=== PATIENT | female | born 1980 | race Caucasian/White ===

== ENCOUNTER → 2016-06-05 | Outpatient (CLI) | payer OTHER ==
[~2016-06-05] MED LIST: /ADVA50050; ACET50TA PO; AMBI10TA; AMOX500C; ATIV0.5T; BUSP10TA2; CELE40TA; CLAR5CHW; DIFFERIN; IBUP-1114 PO; PRENTAB9 PO; PROV90AE; PROZ20CA; SLOWTAB
--- NOTE | 2016-06-06 10:25 | REP ---
Pelvic sonography: History: Heavy bleeding . Findings: Transabdominal and transvaginal scanning are included. Uterine dimensions are normal, at 9.0 x 4.3 x 6.3 cm. Endometrial echo is 0.3 cm thick and centrally placed. No focal uterine mass is seen. No free fluid is noted. Neither ovary could be visualized either transabdominally or trans-vaginally. Impression: Neither ovary could be visualized. No adnexal mass, cyst, or free fluid. Normal uterus. Signed by Vishal Tomlin MD 06/06/2016 11:04 A
== END ==
LOC: M RAD 16:32
PROVIDERS: ATTEND Advanced Practice Midwife
DX: O72.2 Delayed and secondary postpartum hemorrhage (principal)

== ENCOUNTER → 2016-06-20 | Outpatient (REF) | payer OTHER | LOC: M SFHCLERA 10:54 | PROVIDERS: ATTEND Physician Assistant | DX: J02.9 Acute pharyngitis, unspecified (principal) ==

== ENCOUNTER → 2016-07-10 | Outpatient (REF) | payer OTHER | LOC: M LAB REF 13:10 | PROVIDERS: ATTEND Advanced Practice Midwife | DX: Z12.4 Encounter for screening for malignant neoplasm of cervix (principal) ==

== ENCOUNTER → 2017-08-12 | Outpatient (CLI) | payer OTHER ==
[2017-08-12 18:22] LABS: BASO % 0.4 % (0.0-1.0); EOS # 0.1 10^3/uL (0.0-0.50); EOS % 0.8 % (0.0-3.0); HEMATOCRIT 36.9 % (36.0-47.0); HEMOGLOBIN 12.2 g/dl (12.0-15.5); IMMATURE GRANULOCYTE % 0.3 % (0-3.0); LYMPH # 2.8 10^3/uL (1.5-4.5); LYMPH % 27.3 % (24.0-44.0); MEAN CORPUSCULAR HEMOGLOBIN 28.9 pg (27.0-33.0); MEAN CORPUSCULAR HGB CONC 33.1 g/dl (32.0-36.5); MEAN CORPUSCULAR VOLUME 87.4 fl (80.0-96.0); MONO # 0.5 10^3/uL (0.0-0.8); MONO % 4.5 % (0.0-5.0); NEUTROPHILS # 6.8 10^3/uL (1.8-7.7); NEUTROPHILS % 66.7 % (36.0-66.0); PLATELET COUNT, AUTOMATED 364 10^3/uL (150-450); RED BLOOD COUNT 4.22 10^6/uL (4.00-5.40); RED CELL DISTRIBUTION WIDTH 12.5 % (11.5-14.5); WHITE BLOOD COUNT 10.3 10^3/uL (4.0-10.0)
[2017-08-12 18:47] LABS: FREE T4 0.81 NG/DL (0.76-1.46)
[2017-08-12 20:26] LABS: CHLAMYDIA DNA AMPLIFICATION NEGATIVE (NEGATIVE); GC DNA AMPLIFICATION NEGATIVE (NEGATIVE)
[2017-08-13 10:41] LABS: RUBELLA IgG QUALITATIVE IMMUNE (IMMUNE)
[2017-08-13 11:10] LABS: HEPATITIS C VIRUS ABY INDEX < 0.0 INDEX (<0.8)
[2017-08-13 11:11] LABS: HIV 1&2 SCREEN CENTAUR NEGATIVE (NEGATIVE)
[2017-08-13 11:34] LABS: HBsAg Prenatal NEGATIVE (NEGATIVE)
== END ==
LOC: M SMT 14:21
DX: Z3A.10 10 weeks gestation of pregnancy (principal)
CPT/HCPCS: 84443

== ENCOUNTER → 2017-09-07 | Outpatient (REF) | payer OTHER | LOC: M LAB REF 16:57 | DX: Z34.82 Encounter for supervision of other normal pregnancy, second trimester (principal) ==

== ENCOUNTER → 2017-10-14 | Outpatient (CLI) | payer OTHER | LOC: M SMT 09:58 | DX: Z36.89 Encounter for other specified antenatal screening (principal); Z3A.19 19 weeks gestation of pregnancy | CPT/HCPCS: 76811 ==

== ENCOUNTER → 2017-11-15 | Outpatient (CLI) | payer OTHER | LOC: M RAD 14:38 | DX: Z36.89 Encounter for other specified antenatal screening (principal); Z3A.24 24 weeks gestation of pregnancy | CPT/HCPCS: 76816 ==

== ENCOUNTER → 2017-12-21 | Outpatient (CLI) | payer OTHER | LOC: M RAD 11:28 | DX: Z34.82 Encounter for supervision of other normal pregnancy, second trimester (principal); Z3A.30 30 weeks gestation of pregnancy | CPT/HCPCS: 76816 ==

== ENCOUNTER 2018-01-10 06:54 | Outpatient (CLI) | payer OTHER ==
[2018-01-10] MEDS: IRON SUCROSE 500 MG in NS 250 ML IV (08:04)
== END 2018-01-10 11:45 | disposition home or self-care (01) ==
LOC: M INFU 06:54
DX: D64.9 Anemia, unspecified (principal); Z3A.32 32 weeks gestation of pregnancy; J45.909 Unspecified asthma, uncomplicated; F32.9 Major depressive disorder, single episode, unspecified; Z98.84 Bariatric surgery status; Z79.899 Other long term (current) drug therapy; Z88.5 Allergy status to narcotic agent
CPT/HCPCS: J1756

== ENCOUNTER → 2018-02-03 | Outpatient (CLI) | payer OTHER | LOC: M RAD 17:37 | DX: O99.613 Diseases of the digestive system complicating pregnancy, third trimester (principal); Z3A.35 35 weeks gestation of pregnancy; K91.2 Postsurgical malabsorption, not elsewhere classified | CPT/HCPCS: 76816 ==

== ENCOUNTER → 2018-02-10 | Outpatient (CLI) | payer OTHER ==
[2018-02-11 14:40] LABS: IMMEDIATE SPIN CROSSMATCH 1 2
== END ==
LOC: M LAB 16:59
DX: Z00.00 Encounter for general adult medical examination without abnormal findings (principal)
CPT/HCPCS: 36415

== ENCOUNTER → 2018-02-10 | Outpatient (REF) | payer OTHER | LOC: M LAB REF 13:17 | DX: O09.523 Supervision of elderly multigravida, third trimester (principal) | CPT/HCPCS: 87186 ==

== ENCOUNTER 2018-02-11 12:10 | Outpatient (CLI) | payer OTHER ==
[2018-02-11] MEDS: ACETAMINOPHEN 500 MG TAB PO (12:31)
[2018-02-11] MEDS: diphenhydrAMINE 25 MG CAP PO (12:32)
== END 2018-02-11 17:00 | disposition home or self-care (01) ==
LOC: M INFU 12:10
DX: O99.013 Anemia complicating pregnancy, third trimester (principal); Z3A.32 32 weeks gestation of pregnancy; Z88.5 Allergy status to narcotic agent
CPT/HCPCS: 36430

== ENCOUNTER 2018-02-23 00:06 | Outpatient (CLI) | payer OTHER | END 2018-02-23 01:25 | disposition home or self-care (01) | LOC: M LDO 00:06 | DX: O47.1 False labor at or after 37 completed weeks of gestation (principal); Z3A.38 38 weeks gestation of pregnancy | CPT/HCPCS: 59025 ==

== ENCOUNTER 2018-02-23 03:43 | Inpatient (IN) | payer OTHER ==
[2018-02-23] MEDS ORDERED: PENICILLIN G POTASSIUM IV 5 MU in D5W MINI-BAG PLUS 100 ML IV (04:31)
[2018-02-23] MEDS ORDERED: OXYTOCIN 30 UNITS IN 0.9% NaCl 500ML IV BAG (J2590) As Ordered (04:32)
[2018-02-23] MEDS: AMPICILLIN SOD 2 GM in APPROPRIATE DILUENT 20 ML IV (04:36)
[2018-02-23] MEDS ORDERED: AMPICILLIN 2 GM VIAL As Ordered (04:38)
[2018-02-23 05:37] LABS: CORD GAS ABE A -8.2; CORD GAS HCO3 A 20.7 MEQ/L; CORD GAS HCO3 V 18.6 MEQ/L; CORD GAS O2 SAT A 32.3 %; CORD GAS O2 SAT V 32.5 %; CORD GAS PCO2 V 46.4 mmHg; CORD GAS PH A 7.171 UNITS; CORD GAS PH V 7.221 UNITS; CORD GAS PO2 A 18.8 mmHg; CORD GAS PO2 V 17.7 mmHg; CORD GAS SBC A 16.6 MEQ/L; CORD GAS TCO2 A 22.5 MEQ/L
[2018-02-23] MEDS: OXYTOCIN DRIP 30 UNITS in APPROPRIATE DILUENT 1 EA IV (06:03)
[2018-02-23] MEDS ORDERED: ACETAMINOPHEN 500 MG TAB As Ordered (06:05)
[2018-02-23] MEDS ORDERED: METHYLERGONOVINE MALEATE 0.2 MG TAB PO (06:15)
[2018-02-23] MEDS ORDERED: MEASLES,MUMPS,RUBELLA VACCINE INJ (MMR-II) (90707) SC (06:15)
[2018-02-23] MEDS ORDERED: MOM 30ML SUSPENSION UDC PO (06:15)
[2018-02-23] MEDS ORDERED: ANUSOL HC CREAM 30GM TOP (06:15)
[2018-02-23] MEDS ORDERED: DIBUCAINE 1% OINTMENT 30GM TOP (06:15)
[2018-02-23] MEDS ORDERED: RHOGAM 300 MCG (1500 IU) INJ (J2790) IM (06:15)
[2018-02-23] MEDS: PRENATAL VITAMINS CHEWABLE TABLET PO (09:39)
[2018-02-23] MEDS: ACETAMINOPHEN 500 MG TAB PO ×2 (14:51→19:56)
[2018-02-23] MEDS: DOCUSATE SODIUM 100 MG CAP PO (20:05)
[2018-02-24] MEDS: ONDANSETRON 4 MG ORAL DISINTEGRATING TAB (Q0162 PER 1MG) SL (06:32)
[2018-02-24] MEDS: PRENATAL VITAMINS CHEWABLE TABLET PO (08:14)
[2018-02-24] MEDS: ACETAMINOPHEN 500 MG TAB PO (16:08)
[2018-02-25] MEDS: ACETAMINOPHEN 500 MG TAB PO ×2 (04:16→10:29)
[2018-02-25] MEDS: PRENATAL VITAMINS CHEWABLE TABLET PO (08:14)
== END 2018-02-25 10:42 | disposition home or self-care (01) | DRG 560 ==
LOC: M LDO 03:43 → M LDI 04:24 → M OBS 07:28
PROVIDERS: Obstetrics & Gynecology
PROC: 10E0XZZ Delivery of Products of Conception, External Approach (ICD-10-PCS; principal; 2018-02-23)
DX: O80 Encounter for full-term uncomplicated delivery (principal); Z37.0 Single live birth; Z3A.38 38 weeks gestation of pregnancy

== ENCOUNTER → 2018-05-05 | Outpatient (REF) | payer OTHER ==
[~2018-05-05] MED LIST changes: -ACET50TA PO; +CELE40TA PO; +MAPA500T17 PO; +PROTPAK PO
== END ==
LOC: M SFHCLERA 12:32
PROVIDERS: ATTEND Nurse Practitioner Family
DX: R53.81 Other malaise (principal)

== ENCOUNTER 2018-05-27 08:14 | Day surgery (SDC) | payer OTHER ==
[~2018-05-27] VITALS: Ht 162.6 cm; Wt 90.3 kg
[~2018-05-27 08:14] MED LIST changes: +LR 1,000 ML IV ONE; -MAPA500T17 PO; +MAPA500T2 PO
[2018-05-27 08:43] LABS: HEMATOCRIT 38.7 % (36.0-47.0); MEAN CORPUSCULAR HEMOGLOBIN 30.4 pg (27.0-33.0); MEAN CORPUSCULAR HGB CONC 33.6 g/dl (32.0-36.5); MEAN CORPUSCULAR VOLUME 90.6 fl (80.0-96.0); PLATELET COUNT, AUTOMATED 286 10^3/uL (150-450); RED BLOOD COUNT 4.27 10^6/uL (4.00-5.40); WHITE BLOOD COUNT 6.7 10^3/uL (4.0-10.0)
[2018-05-27] MEDS ORDERED: PERCOCET PO (09:05)
[2018-05-27 09:15] LABS: HCG, SERUM QUALITATIVE NEGATIVE (NEGATIVE)
[2018-05-27] MEDS ORDERED: IBUP1TAB7 PO (09:21)
[2018-05-27] MEDS ORDERED: BUPIVACAINE HCL 0.25% 30 ML VIAL As Ordered ONE (10:04)
[2018-05-27] MEDS ORDERED: MIDAZOLAM INJ 2 MG/2 ML VIAL (J2250) As Ordered ONE (10:39)
[2018-05-27] MEDS ORDERED: ONDANSETRON 4MG/2ML VIAL (J2405) As Ordered ONE (10:39)
[2018-05-27] MEDS ORDERED: fentaNYL 250 MCG/5 ML INJECTION (J3010) As Ordered ONE (10:39)
[2018-05-27] MEDS ORDERED: HYDROmorphone HCL 2 MG/ML 1ML VIAL (J1170) As Ordered ONE (10:39)
[2018-05-27] MEDS ORDERED: PROPOFOL 200 MG/20 ML VIAL As Ordered ONE (10:39)
[2018-05-27] MEDS ORDERED: dexameTHASONE 4 MG/ML 1ML VIAL (J1100) As Ordered ONE (10:39)
[2018-05-27] MEDS ORDERED: LIDOCAINE 2% INJ 100 MG/5 ML SDV (FOR ANES.) As Ordered ONE (10:39)
[2018-05-27] MEDS ORDERED: ROCURONIUM BROMIDE 50 MG/5 ML VIAL As Ordered ONE ×2 (10:39→10:58)
[2018-05-27] MEDS ORDERED: SUGAMMADEX SODIUM 500 MG/5 ML VIAL (BRIDION) As Ordered ONE (10:40)
[2018-05-27] MEDS ORDERED: ePHEDrine SULFATE 25 MG/5 ML(5MG/ML) SYRINGE As Ordered ONE (10:49)
[2018-05-27] MEDS ORDERED: fentaNYL 100 MCG/2 ML INJECTION (J3010) IV PRN (11:45)
[2018-05-27] MEDS ORDERED: ONDANSETRON 4MG/2ML VIAL (J2405) IV PRN (11:45)
[2018-05-27] MEDS ORDERED: LR 1,000 ML IV SCH (11:45)
[2018-05-27] MEDS ORDERED: PERCOCET 5MG/325MG TAB PO PRN ×2 (11:45→12:00)
[2018-05-27] MEDS ORDERED: METOCLOPRAMIDE INJ 10MG/2ML VIAL (J2765) IV PRN (11:45)
[2018-05-27] MEDS ORDERED: KETOROLAC 30 MG/ML VIAL (J1885) As Ordered ONE (11:50)
--- NOTE | 2018-05-27 11:56 | RO ---
DATE OF PROCEDURE: 05/27/2018 PREOPERATIVE DIAGNOSIS: Satisfied parity with undesired fertility. POSTOPERATIVE DIAGNOSIS: Satisfied parity with undesired fertility. PROCEDURE PERFORMED: Laparoscopic bilateral salpingectomy. SURGEON: Thu Macedo MD QUALITY CONTROL REPRESENTATIVE: FLORIN Purdy III ANESTHESIA: General endotracheal anesthesia. ESTIMATED BLOOD LOSS: 5 mL. INTRAVENOUS FLUIDS: 700 mL. URINE OUTPUT: 400 mL. PREOPERATIVE ANTIBIOTICS: None. SPECIMENS: Bilateral fallopian tubes. OPERATIVE FINDINGS: Normal appearing pelvic anatomy including uterus, bilateral adnexa. DESCRIPTION OF OPERATION: After informed consent was obtained and written consent was reviewed, the patient was brought to the operating room where general anesthesia was obtained. She was then placed in lithotomy position. She was then prepped and draped in a normal sterile fashion. A time out in the operating room was then performed identifying the patient, procedure to be performed as well as drug allergies. A bivalve speculum was then placed revealing cervix. Anterior lip of the cervix was grasped with a single tooth tenaculum. Hulka tenaculum was advanced through the cervical os for a means to manipulate the uterus. Single tooth tenaculum and speculum was then removed. Li catheter was then placed and set to gravity. Gloves were changed and attention was turned to the patient's abdomen where 0.25% Marcaine was infused in the umbilical region. An incision was made in this area and a 5 mm trocar and sleeve was advanced through this incision. Laparoscope was placed, intra-abdominal placement was confirmed. A pneumoperitoneum was then obtained with CO2 gas. Two addition port sites were placed, the first was 2 cm above the pubic symphysis in the midline. This area was infused with 0.25% Marcaine. Incision was made in this area and a 5 mm trocar and sleeve was advanced through this incision under direct visualization. A third trocar was placed in the left side of the patient's abdomen. 0.25% Marcaine was infused in this area. Incision was made and a 5 mm trocar and sleeve was advanced through this incision under direct visualization. Next, the patient's abdomen was surveyed with the above noted findings. Next, bilateral salpingectomy was the performed. The left fallopian tube was placed on traction. Using Harmonic zachary scalpel device, the mesosalpinx was then dissected at the level of the uterus where the fallopian tube was transected. The specimen was then brought out through this incision. Surgical sites were noted to be hemostatic. In a similar fashion, the right fallopian tube was placed on traction and using the Harmonic zachary scalpel device, it was dissected along the mesosalpinx and was transected at the level of the uterus, and this specimen was also removed. Surgical sites were once again inspected and noted to be hemostatic. The pneumoperitoneum was then released. Trocars were removed. Incisions were closed with #4-0 Monocryl and was dressed with DERMABOND. The patient was then awakened from general anesthesia and taken to the recovery room in stable condition. Edited 05/27/2018 @ 1445 moreno
[2018-05-27] MEDS ORDERED: KETOROLAC 30 MG/ML VIAL (J1885) IV SCH (12:00)
[2018-05-27 13:20] VITALS: BP 132/68
== END 2018-05-27 13:25 | disposition home or self-care (01) ==
LOC: M SDC 08:14
PROVIDERS: ATTEND Obstetrics & Gynecology
DX: Z30.2 Encounter for sterilization (principal); K21.9 Gastro-esophageal reflux disease without esophagitis; D64.9 Anemia, unspecified; J45.909 Unspecified asthma, uncomplicated; Z79.899 Other long term (current) drug therapy; Z98.84 Bariatric surgery status; F41.9 Anxiety disorder, unspecified; F32.9 Major depressive disorder, single episode, unspecified
CPT/HCPCS: 36415; 58661; 84703; 85027; 86850; 86900; 86901; 88302; J1100; J1170; J1885; J2250; J2405; J3010

== ENCOUNTER → 2019-02-08 | Outpatient (REF) | payer OTHER ==
[~2019-02-08] MED LIST changes: -/ADVA50050; +ADVA1AER2; +IBUP1TAB7 PO; -LR 1,000 ML IV ONE; +PERCOCET PO
== END ==
LOC: M SFHCLERA 11:58
PROVIDERS: ATTEND Nurse Practitioner Family
DX: J02.9 Acute pharyngitis, unspecified (principal)

== ENCOUNTER 2019-06-27 10:53 | Day surgery (SDC) | payer OTHER ==
[~2019-06-27] VITALS: Ht 162.6 cm; Wt 94.3 kg
[~2019-06-27 10:53] MED LIST changes: +ADDE20CA3 PO; +NS 1,000 ML IV ONE; +VENTAER INH
[2019-06-27] MEDS ORDERED: LIDOCAINE 2% INJ 100 MG/5 ML SDV (FOR ANES.) As Ordered ONE (11:01)
[2019-06-27] MEDS ORDERED: propofoL 200 MG/20 ML VIAL As Ordered ONE ×2 (12:33→13:38)
[2019-06-27] MEDS ORDERED: fentaNYL 100 MCG/2 ML INJECTION (J3010) As Ordered ONE (12:35)
--- NOTE | 2019-06-27 13:56 | ROOR ---
Patient Name: Katalina León Procedure Date: 06/27/2019 1:05 PM Date of : 1980 Age: 38 Room: [facility] Gender: Female Note Status: Finalized Procedure: Upper GI endoscopy Indications: Iron deficiency anemia Providers: Aden Greene MD Referring MD: Jadon Leavitt Requesting Provider: Medicines: Monitored Anesthesia Care Complications: No immediate complications. Procedure: Pre-Anesthesia Assessment: - Prior to the procedure, a History and Physical was performed, and patient medications and allergies were reviewed. The patient is competent. The risks and benefits of the procedure and the sedation options and risks were discussed with the patient. All questions were answered and informed consent was obtained. Patient identification and proposed procedure were verified by the physician, the nurse and the anesthesiologist in the procedure room. Mental Status Examination: alert and oriented. Airway Examination: normal oropharyngeal airway and neck mobility. Respiratory Examination: clear to auscultation. CV Examination: normal. Prophylactic Antibiotics: The patient does not require prophylactic antibiotics. Prior Anticoagulants: The patient has taken no previous anticoagulant or antiplatelet agents. ASA Grade Assessment: II - A patient with mild systemic disease. After reviewing the risks and benefits, the patient was deemed in satisfactory condition to undergo the procedure. The anesthesia plan was to use monitored anesthesia care (MAC). Immediately prior to administration of medications, the patient was re-assessed for adequacy to receive sedatives. The heart rate, respiratory rate, oxygen saturations, blood pressure, adequacy of pulmonary ventilation, and response to care were monitored throughout the procedure. The physical status of the patient was re-assessed after the procedure. The Endoscope was introduced through the mouth, and advanced to the efferent jejunal loop. The upper GI endoscopy was accomplished without difficulty. The patient tolerated the procedure well. Findings: The examined esophagus was normal. The Z-line was regular and was found 36 cm from the incisors. 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 A gastric pouch with a small size was found. The staple line appeared intact. The gastrojejunal anastomosis was characterized by healthy appearing mucosa. This was traversed. The mrliz-xl-erhqxee limb measured 3 cm from the anastomosis and was characterized by healthy appearing mucosa. The jejunojejunal anastomosis was characterized by healthy appearing mucosa. The ecvoorgx-th-emwnxfj limb was not examined as it could not be found. Two biopsies were obtained with cold forceps for histology in the stomach, as well as two biopsies Jejunum. Verification of patient identification for the specimen was done by the physician and nurse using the patient's name, date and medical record number. Estimated blood loss was minimal. Normal mucosa was found in the jejunum. Impression: - Normal esophagus. - Z-line regular, 36 cm from the incisors. - Gastric bypass with a small-sized pouch and intact staple line. Gastrojejunal anastomosis characterized by healthy appearing mucosa. - Normal mucosa was found in the jejunum. - Biopsies performed in the stomach and Jejunum. Recommendation: - Patient has a contact number available for emergencies. The signs and symptoms of potential delayed complications were discussed with the patient. Return to normal activities tomorrow. Written discharge instructions were provided to the patient. - Post gastric bypass diet (small frequent meals and avoid fatty/ fried foods). - Continue present medications. - Await pathology results. - Telephone GI clinic for pathology results in 2 weeks. - Return to primary care physician. Aden Greene MD Aden Greene MD 06/27/2019 1:56:39 PM Electronically signed by Aden Greene MD Number of Addenda: 0 Note Initiated On: 06/27/2019 1:05 PM Estimated Blood Loss: Estimated blood loss was minimal.
--- NOTE | 2019-06-27 14:00 | ROOR ---
Patient Name: Katalina León Procedure Date: 06/27/2019 1:06 PM Date of : 1980 Age: 38 Room: [facility] Gender: Female Note Status: Finalized Procedure: Colonoscopy Indications: Hematochezia, Iron deficiency anemia Providers: Aden Greene MD Referring MD: Jadon Leavitt Requesting Provider: Medicines: Monitored Anesthesia Care Complications: No immediate complications. Procedure: Pre-Anesthesia Assessment: - Prior to the procedure, a History and Physical was performed, and patient medications and allergies were reviewed. The patient is competent. The risks and benefits of the procedure and the sedation options and risks were discussed with the patient. All questions were answered and informed consent was obtained. Patient identification and proposed procedure were verified by the physician, the nurse and the anesthesiologist in the procedure room. Mental Status Examination: alert and oriented. Airway Examination: normal oropharyngeal airway and neck mobility. Respiratory Examination: clear to auscultation. CV Examination: normal. Prophylactic Antibiotics: The patient does not require prophylactic antibiotics. Prior Anticoagulants: The patient has taken no previous anticoagulant or antiplatelet agents. ASA Grade Assessment: II - A patient with mild systemic disease. After reviewing the risks and benefits, the patient was deemed in satisfactory condition to undergo the procedure. The anesthesia plan was to use monitored anesthesia care (MAC). Immediately prior to administration of medications, the patient was re-assessed for adequacy to receive sedatives. The heart rate, respiratory rate, oxygen saturations, blood pressure, adequacy of pulmonary ventilation, and response to care were monitored throughout the procedure. The physical status of the patient was re-assessed after the procedure. The Colonoscope was introduced through the anus and advanced to the terminal ileum, with identification of the appendiceal orifice and IC valve. The colonoscopy was performed without difficulty. The patient tolerated the procedure well. The quality of the bowel preparation was good. The terminal ileum, ileocecal valve, appendiceal orifice, and rectum were photographed. Scope insertion time was 2 minutes. Scope withdrawal time was 8 minutes. The total duration of the procedure was 12 minutes. Findings: The perianal and digital rectal examinations were normal. The terminal ileum appeared normal. Three sessile polyps were found in the recto-sigmoid colon. The polyps were 6 to 10 mm in size. These polyps were removed with a cold snare. Resection and retrieval were complete. For hemostasis, one hemostatic clip was successfully placed. There was no bleeding at the end of the procedure. Verification of patient identification for the specimen was done by the physician and nurse using the patient's name, date and medical record number. Estimated blood loss was minimal. Non-bleeding external and internal hemorrhoids were found during retroflexion. The hemorrhoids were medium-sized. Impression: - The examined portion of the ileum was normal. - Three 6 to 10 mm polyps at the recto-sigmoid colon, removed with a cold snare. Resected and retrieved. Clip was placed. - Non-bleeding external and internal hemorrhoids. Recommendation: - Patient has a contact number available for emergencies. The signs and symptoms of potential delayed complications were discussed with the patient. Return to normal activities tomorrow. Written discharge instructions were provided to the patient. - High fiber diet. - Continue present medications. - Await pathology results. - Preparation H ointment: Apply externally daily for 5 days. - Repeat colonoscopy in 3 - 5 years for surveillance based on pathology results. - Telephone GI clinic for pathology results in 2 weeks. - Return to primary care physician. Aden Greene MD Aden Greene MD 06/27/2019 2:00:02 PM Electronically signed by Aden Greene MD Number of Addenda: 0 Note Initiated On: 06/27/2019 1:06 PM Estimated Blood Loss: Estimated blood loss was minimal.
[2019-06-27 14:12] VITALS: BP 125/82
== END 2019-06-27 14:25 | disposition home or self-care (01) ==
LOC: M OPP 10:53
PROVIDERS: ATTEND Internal Medicine Gastroenterology
DX: K64.8 Other hemorrhoids (principal); K63.5 Polyp of colon; K92.1 Melena; D50.9 Iron deficiency anemia, unspecified; Z98.84 Bariatric surgery status; E16.2 Hypoglycemia, unspecified; Z79.899 Other long term (current) drug therapy; Z88.5 Allergy status to narcotic agent
CPT/HCPCS: 43239; 45385; 88305; J3010

== ENCOUNTER → 2022-12-01 | Outpatient (CLI) | payer OTHER ==
[~2022-12-01] MED LIST changes: +IRON1TAB2 PO; +MONT10TA97; -NS 1,000 ML IV ONE; +XANA0.5T PO
== END ==
LOC: M WHC 09:42
PROVIDERS: ATTEND Physician Assistant
DX: N64.89 Other specified disorders of breast (principal)

== ENCOUNTER → 2023-01-13 | Outpatient (REF) | payer OTHER | LOC: M SFHCWAGY 17:43 | PROVIDERS: ATTEND Nurse Practitioner Family | DX: Z12.4 Encounter for screening for malignant neoplasm of cervix (principal) ==

== ENCOUNTER → 2024-06-23 | Outpatient (CLI) | payer OTHER ==
[~2024-06-23] MED LIST changes: +CLAR10CA3 PO
== END ==
LOC: M WHC 10:23
PROVIDERS: ATTEND Physician Assistant
DX: Z12.31 Encounter for screening mammogram for malignant neoplasm of breast (principal); R92.313 Mammographic fatty tissue density, bilateral breasts

== ENCOUNTER 2024-11-20 08:21 | Day surgery (SDC) | payer OTHER ==
[~2024-11-20] VITALS: Ht 162.6 cm; Wt 92.3 kg
[~2024-11-20 08:21] MED LIST changes: +CYAN500T14 PO; -MONT10TA97; +MONT10TA97 PO; +VITA50TA43 PO
[2024-11-20] MEDS ORDERED: LIDOCAINE 2% 100 MG/5 ML SDV (FOR ANES.) As Ordered ONE (10:14)
[2024-11-20] MEDS ORDERED: GLYCOPYRROLATE INJ 0.2 MG/ML 2 ML VIAL As Ordered ONE (10:14)
[2024-11-20 10:55] VITALS: BP 159/91; O2SAT 99
== END 2024-11-20 10:55 | disposition home or self-care (01) ==
LOC: M OPP 08:21
PROVIDERS: ATTEND Internal Medicine Gastroenterology
DX: Z12.11 Encounter for screening for malignant neoplasm of colon (principal); K63.5 Polyp of colon; K64.8 Other hemorrhoids; Z86.0100 Personal history of colon polyps, unspecified; Z88.5 Allergy status to narcotic agent; Z79.899 Other long term (current) drug therapy; Z98.84 Bariatric surgery status
CPT/HCPCS: 45385; 88305; J1596